=== PATIENT | female | born 1980 | race Caucasian/White ===

== ENCOUNTER → 2023-12-26 | Outpatient (CLI) | payer BC ==
[~2023-12-26] MED LIST: PRENATAL1 TA1 PO
== END ==
LOC: COL.RAD 12:03
DX: M47.816 Spondylosis without myelopathy or radiculopathy, lumbar region (principal)

== ENCOUNTER → 2024-01-13 | Outpatient (CLI) | payer BC ==
[~2024-01-13] VITALS: Ht 160 cm; Wt 85.0 kg
[~2024-01-13] MED LIST changes: +LIPITOR 10MG10 MG PO; +NORVASC 5MG5 MG/TAB PO; +SPRINTEC 35 MCG1 TAB PO; +Triamcinolone 40 MG/ML 1 ML VIAL IJ SCH; +ZOLOFT 25MG25 MG PO
[2024-01-13 12:34] VITALS: BP 132/88; PULSE 68; TEMP 97.9
[2024-01-13 13:25] VITALS: BP 133/91; PULSE 74
== END ==
LOC: COL.RAD 11:48
DX: M51.26 Other intervertebral disc displacement, lumbar region (principal)
CPT/HCPCS: J0665; J3301

== ENCOUNTER → 2024-02-24 | Outpatient (CLI) | payer BC ==
[~2024-02-24] MED LIST changes: -Triamcinolone 40 MG/ML 1 ML VIAL IJ SCH
== END ==
LOC: MC.RAD 10:55
DX: Z12.31 Encounter for screening mammogram for malignant neoplasm of breast (principal)